=== PATIENT | female | born 1975 | race Caucasian/White ===

== ENCOUNTER 2023-06-24 08:33 | Outpatient (OUT) | payer OTHER, SELFPAY ==
--- NOTE | 2023-06-24 08:36 | MM_ITS ---
Patient: HEBER ELIAS Exam Date: 06/24/2023 : 1975 Gender:F Ordering : DR CIERA HUSSEIN Admission #: [id number] Family : Order #: [id number] CLICK HERE TO VIEW EXAM RADIOLOGY REPORT PROCEDURE: MM TOMOSYNTHESIS SCREENING BI COMPARISON: MG MAMM SCREEN REBECCA W CAD, 11/07/2019. MG MAMM SCREEN 3D REBECCA CAD, 12/01/2021. INDICATIONS: Screening Calculator Name NCI Breast Cancer Risk Assessment Tool 5 Year Breast Cancer Risk 0.90% Lifetime Breast Cancer Risk 9.60% Personal Breast Cancer No Personal Ovarian Cancer No Treatments None Family Cancers Grandmother-paternal with breast cancer at age ~60. LOCATION: [facility] BREAST COMPOSITION: Heterogeneously dense,which may obscure small masses. FINDINGS: DIAGNOSTIC CATEGORY 1--NEGATIVE. NO CHANGE FROM COMPARISON ASSESSMENT. Scattered benign-appearing calcifications are present. Scattered benign-appearing lymph nodes are present. RIGHT BREAST: No significant suspicious finding. LEFT BREAST: No significant suspicious finding. RECOMMENDATIONS: ROUTINE MAMMOGRAM AND CLINICAL EVALUATION IN 12 MONTHS. PLEASE NOTE: A NORMAL MAMMOGRAM DOES NOT EXCLUDE THE POSSIBILITY OF BREAST CANCER. A CLINICALLY SUSPICIOUS PALPABLE LUMP SHOULD BE BIOPSIED. Dictated by: Arjun Duggan MD on 06/24/2023 at 13:16 Approved by: Arjun Duggan MD on 06/24/2023 at 13:18
== END 2023-06-24 08:34 | disposition home or self-care (01) ==
LOC: MAMMO 08:33
PROVIDERS: PCP Family Medicine; Visit Provider Family Medicine
DX: Z12.31 Encounter for screening mammogram for malignant neoplasm of breast (principal); Z80.3 Family history of malignant neoplasm of breast
CPT/HCPCS: 77063; 77067

== ENCOUNTER 2024-07-12 16:14 | Outpatient (OUT) | payer OTHER, SELFPAY ==
--- NOTE | 2024-07-12 | MM_ITS ---
Patient Name: HEBER ELIAS MR#: [id number] : 1975 Exam Date: 07/12/2024 Ordering Doctor: DR CIERA HUSSEIN RADIOLOGY REPORT PROCEDURE: MM TOMOSYNTHESIS SCREENING BI COMPARISON: MM TOMOSYNTHESIS SCREENING BI, 06/24/2023. MG MAMM SCREEN 3D REBECCA CAD, 12/01/2021. MG MAMM SCREEN REBECCA W CAD, 11/07/2019. MAMMO REBECCA SCREEN, 07/17/2007. INDICATIONS: Screening mammogram Calculator Name NCI Breast Cancer Risk Assessment Tool 5 Year Breast Cancer Risk 0.90% Lifetime Breast Cancer Risk 9.50% Personal Breast Cancer No Personal Ovarian Cancer No Treatments None Family Cancers Grandmother-paternal with breast cancer at age ~60. LOCATION: [facility] BREAST COMPOSITION: The breasts are heterogeneously dense,which may obscure small masses. FINDINGS: DIAGNOSTIC CATEGORY 1--NEGATIVE. RIGHT BREAST: No significant suspicious finding. No significant change has occurred. LEFT BREAST: No significant suspicious finding. No significant change has occurred. RECOMMENDATIONS: ROUTINE MAMMOGRAM AND CLINICAL EVALUATION IN 12 MONTHS. PLEASE NOTE: A NORMAL MAMMOGRAM DOES NOT EXCLUDE THE POSSIBILITY OF BREAST CANCER. A CLINICALLY SUSPICIOUS PALPABLE LUMP SHOULD BE BIOPSIED. Dictated by: Phi Patel M.D. on 07/13/2024 at 11:35 Approved by: Phi Patel M.D. on 07/13/2024 at 11:38
--- OUTSIDE RECORDS SUMMARY | 2024-07-12 16:27 | XMS_ITS | CCD ---
Author Organization [facility] Care Team Providers Care Manager Division Name Role Phone HONORIO, DR RAJAN Primary Care Unavailable BUCKY MARIO Admitting Unavailable BUCKY MARIO Attending Unavailable YOU, DR AURELIO Prather Consulting Unavailable BETSY MONTAGUE Consulting Unavailable JOVITA, DR JACKSON Admitting Unavailable JOVITA, DR JACKSON Attending Unavailable HONORIO, DR RAJAN Primary Care Unavailable AMARILIS, DR JAJA Murry Consulting Unavailable JOVITA, DR JACKSON Consulting Unavailable HONORIO, DR RAJAN Primary Care Unavailable ANDIE HOU Consulting Unavailable ANDIE HOU Admitting Unavailable ANDIE HOU Attending Unavailable Jovita (Clinic), Renetta Primary Care UnavailAmanda Chin Attending Unavailable Amanda Arizmendi Admitting Unavailable SHAHAB Arizmendi Attending Provider [phone] Jovita (Clinic), DO Jackson Primary Care Provider Unallocated, Noms Provider Primary Care Provider REAL REYES Attending Unavailable ARIAN PEREYRA Attending Unavailable PEÑA SANFORD Attending Unavailable Unallocated Gilles JUAREZs Provider Primary Care Provi zechariah Allergies Allergy Classification Reported Allergen(s) Allergy Type Date of Onset Reaction(s) Facility (1 source) Codeine Drug Allergy 4 [facility] Repository (1 source) diphenhydrAMINE Drug Allergy 4 [facility] (1 source) oxyCODONE Drug Allergy 4 [facility] (1 source) telithromycin Drug Allergy 4 [facility] (6 sources) oxyCODONE Drug Allergy 4 Rash [facility] (4 sources) peanut allergenic extract Drug Allergy 4 Anaphylaxis [facility] (4 sources) Other Propensity to adverse reactions 5 [facility] Medications Current Medications Medication Drug Class(es) Dates Sig (Normalized) Sig (Original) [id number] 200 actuat albuterol 0.09 mg/actuat metered dose inhaler (4 sources) beta2-Adrenergic Agonist Start: 05-27-2024 End: 06-26-2024 take 2 puff(s) by inhalation every six hours for wheezing albuterol HFA (Ventolin HFA) 90 mcg/act inhaler Indications: Exercise-induced asthma (CMS/HCC) Inhale 2 puffs every 6 (six) hours if needed for wheezing or shortness of breath 8 g 05/27/2024 06/26/2024 Active azithromycin 250 mg oral tablet (8 sources) Macrolide Antimicrobial Start: 06-01-2024 azithromycin (Zithromax) 250 MG tablet Indications: Acute bronchitis, unspecified organism Take 2 tabs (500 mg) by mouth today, than 1 tab (250 mg) daily for 4 days. 6 tablet 06/01/2024 Active Start: 10-04-2023 End: 06-01-2024 azithromycin (Zithromax Z-Pa k) 250 MG tablet Indications: COVID-19 Take as directed 6 tablet 10/04/2023 06/01/2024 Discontinued benzonatate 100 mg oral capsule (2 sources) Non-narcotic Antitussive Start: 06-01-2024 End: 06-08-2024 take 1 capsule by mouth three times daily as needed for cough benzonatate (Tessalon Perles) 100 MG capsule Indications: Acute bronchitis, unspecified organism Take 1 capsule (100 mg) by mouth 3 (three) times a day as needed for cough for up to 7 days Do not crush or chew. 21 capsule 06/01/2024 06/08/2024 Active cetirizine hydrochloride 10 mg oral tablet (4 sources) Histamine-1 Receptor Antagonist Start: 03-15-2024 cetirizine (ZyrTEC) 10 MG tablet Take 10 mg by mouth 03/15/2024 Active [id number] 0.3 ml EPINEPHrine 1 mg/ml auto-injector (4 sources) alpha-Adrenergic Agonist, beta-Adrenergic Agonist, Catecholamine Start: 05-17-2024 EPINEPHrine (Epipen) 0.3 MG/0.3ML injection syringe Inject into the shoulder, thigh, or buttocks 05/17/2024 Active fluticasone propionate 0.05 mg/actuat metered dose nasal spray (4 sources) Corticosteroid Start: 03-15-2024 fluticasone (Flonase) 50 MCG/ACT nasal spray Administer into affected nostril(s) 03/15/2024 Active predniSONE 20 mg oral tablet (2 sources) Start: 06-01-2024 End: 06-06-2024 take 1 tablet by mouth once daily predniSONE (Deltasone) 20 MG tablet Indications: Acute bronchitis, unspecified organism Take 1 tablet (20 mg) by mouth Daily for 5 days 5 tablet 06/01/2024 06/06/2024 Active topiramate 25 mg oral tablet (2 sources) Start: 03-15-2024 topiramate (Topamax) 25 MG tablet Take 25 mg by mouth 03/15/2024 Active Completed/Discontinued Medications Medication Drug Class(es) Dates Sig (Normalized) Sig (Original) 12 hr dextromethorphan hydrobromide 30 mg / guaiFENesin 600 mg extended release oral tablet (4 sources) Uncompetitive E-yxamdt-F-asparta te Receptor Antagonist, Sigma-1 Agonist Start: End: take 1 tablet by mouth once as needed Dextromethorphan-guai FENesin (Mucinex DM) 30-600 MG tablet sustained-release 12 hour Indications: Upper respiratory tract infection, unspecified type Take 1 tablet by mouth every 12 (twelve) hours if needed (as needed) for up to 5 days 28 tablet 05/27/2024 06/01/2024 methylPREDNISolone (6 sources) Corticosteroid Start: 4 End: 4 methylPREDNISolone (Medrol Dospak) 4 MG tablets Indications: COVID-19 As directed 21 tablet 10/04/2023 06/01/2024 Discontinued Start: 10-04-2023 methylPREDNISo lone (Medrol Dospak) 4 MG tablets Indications: COVID-19 As directed 21 tablet 10/04/2023 Active Start: 10-04-2023 methylPREDNISo lone (Medrol Dospak) 4 MG tablets Indications: COVID-19 As directed 21 tablet 0 10/04/2023 Active Problems Active Problems Problem Classification Problem Date Documented Da te Episodic/Chronic Acute bronchitis (2 sources) Acute bronchitis; Translations: [Acute bronchitis, unspecified] 06-01-2024 Episodic Asthma (2 sources) Exercise-induced asthma; Translations: [Exercise induced bronchospasm] 05-27-2024 Chronic Immunizations and screening for infectious disease (2 sources) Contact with or exposure to other viral diseases; Translations: [Exposure to COVID-19 virus] 10-04-2023 Episodic Influenza (1 source) Influenza due to other identified influenza virus with other respiratory manifestations; Translations: [FLU D/T OTH ID FLU VIR OTH RSP MANF] Onset: 08-11-2022 Episodic Other lower respiratory disease (2 sources) Cough; Translations: [Cough, unspecified type] 05-27-2024 Episodic Other upper respiratory infections (2 sources) Upper respiratory infection; Translations: [Acute upper respiratory infection, unspecified] 05-27-2024 Episodic Unclassified (2 sources) COUGH, UNSPECIFIED; Translations: [COUGH, UNSPECIFIED] Onset: 08-11-2022 Unclassified (1 source) CONTACT W/AND (SUSP) EXPOS COVID-19; Translations: [CONTACT W/AND (SUSP) EXPOS COVID-19] Onset: 08-11-2022 Unclassified (1 source) Pain in right ankle and joints of right foot; Translations: [Pain in right ankle and joints of right foot] Onset: 08-26-2023 Viral infection (2 sources) Disease caused by 2019-nCoV; Translations: [COVID-19] 10-04-2023 Episodic Past or Other Problems Problem Classification Problem Date Documented Da te Episodic/Chronic E Codes: Fall (1 source) Fall (on) (from) unspecified stairs and steps, initial encounter; Translations: [FALL ON FROM UNS STAIRS STEPS INIT] Onset: 03-24-2022 Episodic Other screening for suspected conditions (not mental disorders or infectious disease) (4 sources) Encounter for screening mammogram for malignant neoplasm of breast; Translations: [ENC SCR MAMMO MALIG NEOPLASM BREAST] Onset: 12-01-2021 Episodic Residual codes; unclassified (1 source) Family history of malignant neoplasm of breast; Translations: [FAMILY HX MALIG NEOPLASM OF BREAST] Onset: 12-04-2021 Episodic Spondylosis; intervertebral disc disorders; other back problems (4 sources) Dorsalgia, unspecified; Translations: [DORSALGIA UNSPECIFIED] Onset: 03-22-2022 Episodic Sprains and strains (2 sources) Strain of unspecified muscle, fascia and tendon at shoulder and upper arm level, left arm, initial encounter; Translations: [Strain of unspecified muscle, fascia and tendon at shoulder and upper arm level, right arm, initial encounter] Onset: 03-24-2022 Episodic Unclassified (1 source) COUGH, UNSPECIFIED; Translations: [COUGH, UNSPECIFIED] Onset: 08-09-2022 Results Test Name Value Interpretation Reference Range Facility Laboratory - Microbiology an d Antimicrobial susceptibilityon 05-27-2024 SARS-CoV-2 (COVID-19) RNA CHOLO+probe Ql (Unsp spec) Negative [facility] No Panel Informationon 05-27 FLU A Negative [facility] FLU B Negative [facility] Interpretation and review of laboratory results Normal [facility] Laboratory - Microbiology an d Antimicrobial susceptibilityOrdered By: Peña Crocker on 10-04-2023 SARS-CoV-2 (COVID-19) RNA CHOLO+probe Ql (Unsp spec) Positive [facility] No Panel InformationOrdered By: Peña Crocker on 10-04-2023 Interpretation and review of laboratory results Abnormal [facility] MR ankle RT wo conon 024 MR ankle RT wo con [facility] [address] MRI Report Signed Patient: Heber Elias MR#: [id number] 300 : 1975 Acct:[id number] Age/Sex: 47 / F ADM Date: 08/26/23 Loc: MR Room: Type[facility] Attending Dr: Amanda Arizmendi DPM Copies to: Amanda Arizmendi DPM Ordering Provider: Amanda Arizmendi DPM Date of Service: 08/26/23 MR/MR ankle RT wo con: R ANKLE FOOT PAIN MR ankle RT wo con 08/26/2023 10:33 AM SIGNS AND SYMPTOMS: Anterior ankle pain radiating to metatarsals and foot PROTOCOL: Multiplanar multisequence MR images of the right ankle were obtained without IV contrast. COMPARISON: Radiographs of the right ankle from the same date FINDINGS: Alignment: Normal. Fluid: Tibiotalar: No joint effusion. Subtalar: No joint effusion. Medial: Medial malleolus: Normal. Tendons: Posterior tibial tendon: Intact. Flexor digitorum longus: Intact. Flexor hallucis longus: Intact. Ligaments: Deltoid ligament complex - superficial: Intact. Deltoid ligament complex - deep: Intact. Spring (plantar calcaneo-navicular) ligament: Intact. Lateral: Lateral malleolus: Normal. Retromalleolar groove: Normal. Tendons: Peroneus longus: There is a split thickness tear along the lateral aspect and plantar aspect of the foot beginning on series 6 image 10 and extending inferiorly and anteriorly.. Peroneus brevis: Intact. Peroneal retinaculum: Intact. Peroneus quartus present. Ligaments: Anterior inferior tibiofibular (syndesmosis): Intact. Posterior inferior tibiofibular (syndesmosis): Intact. Anterior talofibular ligament: Intact. Calcaneofibular ligament: Intact. Posterior talofibular ligament: Intact. Posterior: Posterior talus: Normal. Intermalleolar ligament: Intact. Achilles tendon: Intact. Plantar fascia: Intact. Anterior: Tendons: Anterior tibial tendon: Intact. Extensor hallucis longus: Intact. Extensor digitorum longus: Intact. Tibiotalar joint: Preserved. Subtalar joint: Preserved. Bones (other than subarticular marrow): Normal. Muscles: Normal Tarsal tunnel: Normal. Sinus tarsi: Normal. MR/MR ankle RT wo con IMPRESSION: There is a split thickness tear of the peroneal longus tendon as described above. There is a peroneus quartus present. The ankle is otherwise within normal limits. Impression dictated by: Macho Kan M.D.08/26/2023 5:06 PM Dictation Location: [place] [address] Transcribed By: [facility] 08/26/23 1706 Dictated By: Macho Kan II, MD 08/26/23 2784 Signed By: 08/26/23 1706 [facility] MR foot RT wo conon 08-26-19 [place] [address] MRI Report Signed Patient: Heber Elias MR#: [id number] 300 : 1975 Acct:[id number] Age/Sex: 47 / F ADM Date: 08/26/23 Loc: Room: Type[facility] Attending Dr: Amanda Arizmendi DPM Copies to: Amanda Arizmendi DPM Ordering Provider: Amanda Arizmendi DPM Date of Service: 08/26/23 MR/MR foot RT wo con: RIGHT ANKLE/FOOT PAIN MR foot RT wo con 08/26/2023 10:33 AM SIGNS AND SYMPTOMS: Anterior ankle pain radiating to metatarsals and foot PROTOCOL: Multiplanar multisequence MR images of the right foot were obtained without IV contrast. COMPARISON: Radiographs from the same date FINDINGS: Lisfranc ligament: Intact. Hallux: Osseous: Normal. Extensor tendon: Normal. Flexor tendon: Normal. First metatarsophalangeal joint: There is minimal subcortical edema at the base of the proximal phalanx of the great toe. There is mild narrowing of the joint space.. Hallux-sesamoid complex: Normal. Second ray: Osseous: Normal. Extensor tendon: Normal. Flexor tendon: Normal. Second metatarsophalangeal joint: Normal. Plantar plate: Normal. Third ray: Osseous: Normal. Extensor tendon: Normal. Flexor tendon: Normal. Third metatarsophalangeal joint: Normal. Plantar plate: Normal. Fourth ray: Osseous: Normal. Extensor tendon: Normal. Flexor tendon: Normal. Fourth metatarsophalangeal joint: Normal. Plantar plate: Normal. Fifth ray: Osseous: Normal. Extensor tendon: Normal. Flexor tendon: Normal. Fifth metatarsophalangeal joint: Normal. Plantar plate: Normal. Interspaces: Interdigital (Ba) neuroma: None. Intermetatarsal bursitis: None. Soft tissues: There is partial visualization of a split thickness tear of the peroneal longus along the plantar surface of the foot.. Muscles: Normal. Bones: Normal. Nerves: Normal. Blood vessels: Normal. MR/MR foot RT wo con IMPRESSION: There is minimal subcortical edema at the base of the proximal phalanx of the great toe. There is mild narrowing of the joint space. There is partial visualization of a split thickness tear of the peroneal longus along the plantar surface of the foot. The foot is otherwise within normal limits. Impression dictated by: Macho Kan M.D.08/26/2023 5:10 PM Dictation Location: [facility]-07 Transcribed By: CHACHA 08/26/23 1710 Dictated By: Macho Kan II, MD 08/26/23 1706 Signed By: 08/26/23 171 Normal [facility] XR pre/post mri xrayon 08-26 XR pre/post mri xray [facility] Main [place] [address] [place] [address] XRay Report Signed Patient: Heber Elias MR#: [id number] 300 : 1975 Acct:[id number] Age/Sex: 47 / F ADM Date: 08/26/23 Loc: Room: Type[facility] Attending Dr: Amanda Arizmendi DPM Copies to: Amanda Arizmendi DPM Ordering Provider: Amanda Arizmendi DPM Date of Service: 08/26/23 XR/XR pre/post mri xray: RIGHT ANKLE AND FOOT PAIN XR pre/post mri xray 08/26/2023 10:33 AM SIGNS AND SYMPTOMS: RIGHT ANKLE AND FOOT PAIN RIGHT ANKLE AND FOOT PROTOCOL: Frontal and lateral radiographs of the right ankle and right foot COMPARISON: None FINDINGS: Right ankle: The bones are in anatomic alignment. The ankle mortise is preserved. There is no fracture or dislocation. No significant soft tissue swelling. Right foot: The bones are in anatomic alignment. There is no evidence of fracture or dislocation. No significant soft tissue swelling. There is minimal narrowing of the first metatarsophalangeal joint. XR/XR pre/post mri xray IMPRESSION: Right ankle: No acute bony injury or significant soft tissue swelling. Right foot: Mild degenerative changes are noted at the first metatarsophalangeal joint space. No acute bony injury or significant soft tissue swelling. Impression dictated by: Macho Kan M.D.08/26/2023 5:11 PM Dictation Location: [facility]-07 Transcribed By: PWS 08/26/23 1711 Dictated By: Macho Kan II, MD 08/26/23 171 Signed By: 08/26/23 171 [facility] Cov[facility]on 07-22 SARS-CoV-2 (COVID-19) RNA CHOLO+probe Ql (Unsp spec) Not detected Normal NOT DETECTED [facility] Comment on above: Result Comment: This test is not yet approved or cleared by the [place] FDA. When there are no FDA-approved or cleared tests available, and other criteria are met, FDA can make tests available under an emergency access mechanism called an Emergency Use Authorization (EUA). The EUA for this test is supported by the [place] of Health and Human Service's (HHS's) declaration that circumstances exist to justify the emergency use of in vitro diagnostics for the detection and/or diagnosis of the virus that causes COVID-19. This EUA will remain in effect (meaning this test can be used) for the duration of the COVID-19 declaration justifying emergency of IVDs, unless it is terminated or revoked by FDA (after which the test may no longer be used). When diagnostic testing is negative, the possibility of a false negative should be considered in the context of a patient's recent exposures and the presence of clinical signs and symptoms consistent with SARS-CoV-2. Performed By: #### C VDTBH #### [facility] [address] [place] [address] Dr. Juan Eubanks INFLUENZA A AND B AGon 08[facility]09 [facility] BELOW Normal [facility] Comment on above: Result Comment: Nega tive for Flu B protein antigen. Infection due to Flu B cannot be ruled out. Flu B antigen in the sample may be below the detection limit of the test. Performed By: #### I NFLUAB #### [facility] [address] [place] [address] Dr. Juan Eubanks INFLUENZA A AG Positive Abnormal NEGATIVE SEE COMMENT [facility] Comment on above: Performed By: #### I NFLUAB #### [facility] [address] [place] [address] Dr. Juan Eubanks INFLUENZA B AG Negative Normal NEGATIVE SEE COMMENT [facility] Comment on above: Performed By: #### I NFLUAB #### [facility] [address] [place], [place] [address] Dr. Juan Eubanks INTERNAL CONTROLS Within Normal Limits Normal Wi thin Normal Limits [facility] Comment on above: Performed By: #### I NFLUAB #### [facility] [address] [place], [place] [address] CSPINE WO CONon 2 CT CSPINE WO CON EXAMINATION: CT CSPI NE WO CON HISTORY: Unspecified fall ; acute neck, back, bilateral shoulder pain after falling down steps COMPARISON: XR cervical spine 01/20/2019 TECHNIQUE: Axial, Coronal, and Sagittal images were created without IV contrast. Dose reduction techniques were achieved by using automated exposure control and/or adjustment of mA and/or kV according to patient size and/or use of iterative reconstruction technique. FINDINGS: VERTEBRAL BODIES: No fracture, pars defect, or osseous lesion. FACET JOINTS: No disruption or abnormal widening. CERVICAL DISCS: Mild disc space narrowing and mild posterior disc bulging C3-C4, C4-C5. CENTRAL CANAL: No spinal stenosis or evidence of hemorrhage. PARASPINAL AREA: No visible mass. IMPRESSION: 1. No appreciable acute abnormality. 2. Mild degenerative changes. Electronically authenticated by: AURELIO ORTA Date: 2022-03-22 16:57 Normal [facility] CT TSPINE WO CONon 2 CT TSPINE WO CON EXAMINATION: CT TSPI NE WO CON HISTORY: Unspecified fall ; acute neck, back, bilateral shoulder pain after falling down steps COMPARISON: No relevant comparison available. TECHNIQUE: Axial, Coronal, and Sagittal CT images obtained without and with IV contrast. Dose reduction techniques were achieved by using automated exposure control and/or adjustment of mA and/or kV according to patient size and/or use of iterative reconstruction technique. FINDINGS: PARASPINAL AREA: Normal with no visible mass. DISCS: Early degenerative disc disease is present without focal protrusion or neural impingement. BONES: No fracture, pars defect, or osseous lesion. OTHER: Negative. IMPRESSION: 1. No acute bone abnormality. 2. Mild, early degenerative changes. Electronically authenticated by: AURELIO ORTA Date: 2022-03-22 17:03 Normal [facility] MG MAMM SCREEN 3D REBECCA CADon 12-01-2021 MG MAMM SCREEN 3D REBECCA CAD Patient: HEBER ELIAS Exam Date: 12/01/2021 : 1975 Gender:F Ordering : DR RENETTA HUSSEIN Admission #: [id number] Family : Order #: [id number] CLICK HERE TO VIEW EXAM RADIOLOGY REPORT PROCEDURE: MAMMOGRAM SCREENING 3D BILATERAL CAD COMPARISON: MG MAMM SCREEN REBECCA W CAD, 10/02/2018. MG MAMM SCREEN REBECCA W CAD, 11/07/2019. INDICATIONS: Screening mammography Calculator Name NCI Breast Cancer Risk Assessment Tool 5 Year Breast Cancer Risk 0.80% Lifetime Breast Cancer Risk 9.80% Personal Breast Cancer No Personal Ovarian Cancer No Treatments None Family Cancers Grandmother-paternal with breast cancer at age 60. LOCATION: [facility] BREAST COMPOSITION: Heterogeneously dense,which may obscure small masses. FINDINGS: DIAGNOSTIC CATEGORY 1--NEGATIVE. NO CHANGE FROM COMPARISON ASSESSMENT. Scattered benign-appearing calcifications are present. Scattered benign-appearing lymph nodes are present. RIGHT BREAST: No significant suspicious finding. LEFT BREAST: No significant suspicious finding. RECOMMENDATIONS: ROUTINE MAMMOGRAM AND CLINICAL EVALUATION IN 12 MONTHS. PLEASE NOTE: A NORMAL MAMMOGRAM DOES NOT EXCLUDE THE POSSIBILITY OF BREAST CANCER. A CLINICALLY SUSPICIOUS PALPABLE LUMP SHOULD BE BIOPSIED. Dictated by: Jaja Duggan MD on 12/01/2021 at 10:18 Approved by: Jaja Duggan MD on 12/01/2021 at 10:24 Normal [facility] Vital Signs Date Time Vital Sign Value Performing Clinician Charmaine river 06-01-2024 09:31-0400 Body temperature 96.91 [degF] Peña Sanford DIRECTOR OF [employer]ING [employer] Work Phone: [facility] 06-01-2024 09:31-0400 Body weight 67.13 kg Peña Sanford DIRECTOR OF [employer] Work Phone: [facility] 06-01-2024 09:31-0400 Diastolic blood pressure 70 mm[Hg] Peña Sanford DIRECTOR OF [employer] Work Phone: [facility] 06-01-2024 09:31-0400 Heart rate 89 /min Peña Sanford DIRECTOR OF [employer] Work Phone: [facility] 06-01-2024 09:31-0400 SaO2% (BldA) [Mass fraction] 99 % Peña Sanford DIRECTOR OF [employer] Work Phone: [facility] 06-01-2024 09:31-0400 Systolic blood pressure 116 mm[Hg] Peña Sanford DIRECTOR OF [employer] Work Phone: [facility] 05-27-2024 09:41-0400 Body temperature 98.01 [degF] Summer Workman PA Work Phone: [facility] 05-27-2024 09:41-0400 Body weight 67.13 kg Summer Workman PA Work Phone: [facility] 05-27-2024 09:41-0400 Diastolic blood pressure 62 mm[Hg] Summer Workman PA Work Phone: [facility] 05-27-2024 09:41-0400 Heart rate 100 /min Summer Workman PA Work Phone: [facility] 05-27-2024 09:41-0400 SaO2% (BldA) [Mass fraction] 98 % Summer Workman PA Work Phone: [facility] 05-27-2024 09:41-0400 Systolic blood pressure 100 mm[Hg] Summer Workman PA Work Phone: [facility] 10-04-2023 15:40-0500 Body temperature 98.71 [degF] Real Reyes DO Work Phone: [facility] 10-04-2023 15:40-0500 Body weight 67.27 kg Real Odiliashady DO Work Phone: [facility] 10-04-2023 15:40-0500 Diastolic blood pressure 62 mm[Hg] Real Odiliashady DO Work Phone: [facility] 10-04-2023 15:40-0500 Heart rate 88 /min Real Odiliashady DO Work Phone: [facility] 10-04-2023 15:40-0500 SaO2% (BldA) [Mass fraction] 99 % Real Odiliashady DO Work Phone: [facility] 10-04-2023 15:40-0500 Systolic blood pressure 116 mm[Hg] Real Hartleyshady DO Work Phone: [facility] Encounters Encounter Date Encounter Type Care Provider Facility Start: 06-01-2024 End: 06-01-2024 ambulatory PEÑA SANFORD Not Available Start: 06-01-2024 End: 06-01-2024 Office outpatient visit 25 minutes Peña Sanford DIRECTOR OF [employer] Work Phone: [facility] Comment on above: Acute bronchitis, un specified organism (Primary Dx) Start: 05-27-2024 End: 05-27-2024 ambulatory SUMMER M WORKMAN Not Available Start: 05-27-2024 End: 05-27-2024 Office outpatient visit 25 minutes Summer M Workman PA Work Phone: [facility] Comment on above: Upper respiratory tr act infection, unspecified type (Primary Dx); Cough, unspecified type; Exercise-induced asthma ([facility]) Start: 10-04-2023 End: 10-04-2023 ambulatory REAL REYES Not Available Start: 10-04-2023 End: 10-04-2023 Office outpatient new 45 minutes Real Hartleyshady DO Work Phone: [facility] Comment on above: COVID-19 (Primary Dx ); Exposure to COVID-19 virus Start: 08-26-2023 End: 08-26-2023 ambulatory Renetta Hussein (Clinic) Facility:[facility] Start: 08-26-2023 End: 08-26-2023 ambulatory DO Renetta Hussein (Clinic) Work Phone: [facility] Work Phone: Start: 08-26-2023 End: 08-26-2023 Patient encounter procedure DO Renetta Hussein (Clinic) Work Phone: [facility] [place] Work Phone: Start: 08-09-2022 End: 08-09-[address] MOHINI OLMEDO Facility:[facility] Start: 03-22-2022 End: 03-22-[address] MOHINI LOMEDO Facility:[facility] Start: 12-01-2021 End: 12-02-[address] RENETTA HUSSEIN Facility:[facility] Procedures Date Procedure Procedure Detail Performing Clinician Start: 05-27-2024 STATUS COVID-19/FLU Ant russell Reyes DO Work Phone: Start: 10-04-2023 Sars-cov-2 detection by dna/rna Real Reyes DO Work Phone: Start: 08-26-2023 MRI of right ankle DO Vincenzo john Hussein ([facility]) Work Phone: Start: 08-26-2023 MRI of right foot DO Tyrese Hussein ([facility]) Work Phone: Start: 08-26-2023 XR pre/post mri xray DO Renetta Hussein ([facility]) Work Phone: Plan of Treatment Date Care Activity Detail Author Start: 04-22-2024 Influenza vaccination Influenza Vacc ine (#1) [facility] Start: 2016 Screening for malign ant neoplasm of breast Mammogram [facility] Start: 2006 Screening for malign ant neoplasm of cervix [facility] Start: 1997 Screening for malign ant neoplasm of cervix Pap Smear [facility] Start: 1976 Screening for malign ant neoplasm of colon [facility] Immunizations Immunization Date Immunization Notes Care Provider Liya young 05-20-2023 influenza virus vacc ine, unspecified formulation Arian MEYER Work Phone: [facility] Payers Date Payer Category Payer Self-pay 2022 Private Health Insurance [employer] [facility] [id number] 2022 Unknown [id number] 2019 Unknown [id number] 1976 Unknown [id number] 1976 Unknown [id number] 1976 Unknown [id number] 1976 Unknown [id number] 1976 Unknown [id number] 1976 Unknown [id number] 1959 Unknown [id number] Unknown [id number] Social History Date Type Detail Facility Tobacco smoking stat [facility] Unknown if ever smoked [facility] Work Phone: Start: 1975 Sex Assigned At Female F [facility] Start: 10-04-2023 Tobacco smoking stat [facility] Never smoked tobacco [facility] Start: 10-04-2023 Tobacco use and exposure Smokeless tobacco non-user [facility] Start: 10-04-2023 End: 06-01-2024 Alcohol intake Ex-drinker (finding) [facility] Start: 1975 Sex Assigned At Not on file [facility] Start: 10-04-2023 End: 06-01-2024 Gender identity Not on file [facility] Start: 10-04-2023 End: 06-01-2024 History of Social function [facility] History of Present illness Narrative 06-01-2024 Peña Sanford NP - 06/01/2024 9:25 AM EDT Note Date & Type Note Facility 06-01-2024 History of Presen t illness Narrative HPI: Historian of HPI: patient Heber Elias is a 48 y.o. female who presents today to the Urgent Care with the following complaints and denials which have been present for 1 week(s) C/O Denies Symptom Comments [] [x] Runny Nose [] [x] Difficulty Swallowing [x] [] Sore Throat [x] [] Cough [] [x] Ear Pain [] [x] Fever [] [x] Chills [x] [] Chest Congestion [] [x] Myalgia [] [x] Sinus Pain [x] [] Sinus Pressure Additional Comments: pt has taken Musinex OTC medication without relief ROS: A complete system ROS was performed and negative aside from the pertinent positives noted in the HPI and Examination General Examination: General Examination: alert, oriented, normal affect, well appearing, in no acute distress, well developed, well nourished Head: normocephalic, atraumatic Eyes: sclera non-icteric Ears: tympanic membrane intact, clear, auditory canal non inflamed Nose: congested with clear drainage. Oral Cavity: mucosa moist, no lesions Throat: PND noted Neck/Thyroid: trachea midline Lymph Nodes: no cervical adenopathy Heart: no murmurs, regular rate and rhythm, S1, S2 normal Lungs: clear to auscultation bilaterally. Wet bronchospastic cough Extremities: no edema, no cyanosis Neurologic: alert and oriented Psych: alert, oriented, cognitive function intact, cooperative with exam 1. Acute bronchitis, unspecified organism Diagnosis and treatment discussed with patient. Immediate eval if new, worsening sx otherwise f/u with PCP if sx not resolved with course of atb, sooner if not improving over next 3-4 days. To ED for trouble swallowing secretions, shortness of breath, chest pain, or other red flag symptoms. Advised Pt on supportive therapies, including using a vaporizer/humidifer/steam from hot showers, lots of fluids as tolerated, rest, avoidance of second-hand smoke, frequent hand-washing w/ soap and water, and OTC ibuprofen or acetaminophen as directed prn for pain control - azithromycin (Zithromax) 250 MG tablet; Take 2 tabs (500 mg) by mouth today, than 1 tab (250 mg) daily for 4 days. Dispense: 6 tablet; Refill: 0 - predniSONE (Deltasone) 20 MG tablet; Take 1 tablet (20 mg) by mouth Daily for 5 days Dispense: 5 tablet; Refill: 0 - benzonatate (Tessalon Perles) 100 MG capsule; Take 1 capsule (100 mg) by mouth 3 (three) times a day as needed for cough for up to 7 days Do not crush or chew. Dispense: 21 capsule; Refill: 0 documented in this encounter [facility] History of Present illness Narrative 05-27-2024 Arian JohnBETSY haro - 05/27/2024 9:20 AM EDT Note Date & Type Note Facility 05-27-2024 History of Presen t illness Narrative HPI: Historian of HPI: patient Heber Elias is a 48 y.o. female who presents today to the Urgent Care with the following complaints and denials which have been present for 3 day(s). Pt reports 3 days of nasal congestion, cough just started today with some green mucus production, left ear pain, mild sore throat, subjective fever and myalgias. Denies sob, wheezing, chest pain, nausea, vomiting, hemoptysis. She is not a smoker, has hx of exercise induced asthma but has not needed an inhaler in her lifetime. C/O Denies Symptom Comments [x] [] Runny Nose [] [x] Difficulty Swallowing [x] [] Sore Throat A little as the day went on [x] [] Cough [x] [] Ear Pain Mild, left side [x] [] Fever [] [x] Chills [x] [] Nasal Congestion mild [x] [] Myalgia [] [x] Sinus Pain [] [x] Sinus Pressure Additional Comments: Pt agreeable to COVID/flu testing at this time. Allergies Allergen Reactions Peanut (Diagnostic) Anaphylaxis Other Oxycodone Rash Current Outpatient Medications Medication Instructions azithromycin (Zithromax Z-David) 250 MG tablet Take as directed cetirizine (ZYRTEC) 10 mg, Oral EPINEPHrine (Epipen) 0.3 MG/0.3ML injection syringe Intramuscular fluticasone (Flonase) 50 MCG/ACT nasal spray Nasal methylPREDNISolone (Medrol Dospak) 4 MG tablets As directed Visit Vitals BP 100/62 Pulse 100 Temp 98 F Wt 148 lb SpO2 98% Smoking Status Never ROS: A complete system ROS was performed and negative aside from the pertinent positives noted in the HPI and PE. IH Testing: COVID/Flu Physical Exam General Examination: alert, oriented, normal affect, well-appearing, in no acute distress, well developed, well nourished. Head: normocephalic, atraumatic Eyes: sclera non-icteric Ears: auditory canal clear, tympanic membrane intact, clear Nose: Slight congestion noted Oral Cavity: no lesions, mucosa moist Throat: clear, symmetrical rise of soft palate and uvula, no erythema or exudate Lymph Nodes: no cervical adenopathy Heart: regular rate and rhythm, S1, S2 normal Lungs: clear to auscultation bilaterally. No wheezes, rales, rhonchi. Extremities: no edema, no cyanosis Psych: alert, oriented, cognitive function intact, cooperative with exam. Assessment/Plan 1. Upper respiratory tract infection, unspecified type Discussed diagnosis and management, likely viral etiology and symptomatic treatment including OTC Tylenol, mucinex dm, using humidifier, rest, and increased hydration. Patient advised to return for immediate evaluation if symptoms worse, change, or do not improve. Follow-up with PCP in 5-7 days or sooner if needed. All questions/concerns addressed. Patient voiced understanding and agreement with the plan. ds contagious nature, off work note for tomorrow provided per front end driver. - Dextromethorphan-guaiFENesin (Mucinex DM) 30-600 MG tablet sustained-release 12 hour; Take 1 tablet by mouth every 12 (twelve) hours if needed (as needed) for up to 5 days Dispense: 28 tablet; Refill: 0 2. Cough, unspecified type Covid/flu neg, reviewed with pt. - STATUS COVID-19/FLU 3. Exercise-induced asthma (CMS/HCC) Will send albuterol as she has hx of asthma without inhaler at home. Instructed on proper use. - albuterol HFA (Ventolin HFA) 90 mcg/act inhaler; Inhale 2 puffs every 6 (six) hours if needed for wheezing or shortness of breath Dispense: 8 g; Refill: 0 documented in this encounter [facility] History of Present illness Narrative 10-04-2023 Alfredo Marrero MA - 10/04/2023 3:30 PM EST Note Date & Type Note Facility 10-04-2023 History of Presen t illness Narrative HPI: Historian of HPI: patient Heber More is a 47 y.o. female who presents today to the Urgent Care with the following complaints and denials which have been present for 3 day(s) pt states she tested positive for covid today at home. Pt states she was also exposed to covid by a co-worker. C/O Denies Symptom Comments [x] [] Runny Nose Yellow and green discharge [] [x] Difficulty Swallowing [] [x] Sore Throat [x] [] Cough Wet cough [] [x] Ear Pain [] [x] Fever [] [x] Chills [] [x] Nasal Congestion [] [x] Myalgia [x] [] Sinus Pain CIFUENTES [x] [] Sinus Pressure Additional Comments: pt has not taken any OTC medications ROS: A complete system ROS was performed and negative aside from the pertinent positives noted in the HPI and PE. IH Testing: The following tests were performed PCR COVID Test SEE TEST(S) ORDERS FOR RESULTS EXAMINATION General Examination: GENERAL EXAMINATION: alert, oriented, normal affect, well-appearing, in no acute distress, well developed, well nourished. HEAD: normocephalic EYES: sclera non-icteric. EARS: tympanosclerosis bilaterally NOSE: congested with clear drainage ORAL CAVITY: mucosa moist no lesions. THROAT: PND noted. NECK/THYROID: no carotid bruit. LYMPH NODES: no cervical adenopathy. HEART: no murmurs, regular rate and rhythm, S1, S2 normal. LUNGS: clear to auscultation bilaterally. EXTREMITIES: no edema, no cyanosis. NEUROLOGIC: alert and oriented. PSYCH: alert, oriented, cognitive function intact, cooperative with exam. HPI and documentation approved and amended as necessary by Dr. Real Reyes. Transcribed by Peña reinoso LPN-IV 1. Exposure to COVID-19 virus COVID positive. Results reviewed with patient. - RAPID DNA COVID 2. COVID-19 Dx and tx reviewed with patient. Medication as directed. Push fluids. No NSAIDs while taking steroid. Quarantine for 5 days, mask for 5 days. To ER if adverse change in condition noted. Follow up with PCP. azithromycin (Zithromax Z-David) 250 MG tablet Take as directed, Normal methylPREDNISolone (Medrol Dospak) 4 MG tablets As directed, Normal documented in this encounter [facility] Instructions 10-04-2023 Patient Instructions Note Date & Type Note Facility 10-04-2023 Instructions Peña Ferrara RN - 10/04/2023 3:30 PM EST See progress note documented in this encounter [facility] Clinical Note 03-22-2022 Note Date & Type Note Facility 03-22-2022 Note PROCEDURE: XR SHOULD ER REBECCA 2V or > HISTORY: Unspecified fall ; bilateral shoulder pain after falling down steps COMPARISON: None. FINDINGS: BONES:No fracture, acute abnormality, or significant arthropathy. SOFT TISSUES:No visible soft tissue swelling. EFFUSION:None visible. OTHER: Negative. IMPRESSION: 1. No acute bone abnormality or significant degenerative changes. Electronically authenticated by: AURELIO ORTA Date: 2022-03-22 17:10 [facility] Evaluation note Note Date & Type Note Facility Evaluation note [email or web address]: Evaluation note Note Date & Type Note Facility Evaluation note Diagnosis COVID-19- Primary Exposure to COVID-19 virus documented in this encounter [facility] Evaluation note Note Date & Type Note Facility Evaluation note Diagnosis Upper respiratory tract infection, unspecified type- Primary Cough, unspecified type Exercise-induced asthma (CMS/HCC) Exercise induced bronchospasm documented in this encounter [facility] Evaluation note Note Date & Type Note Facility Evaluation note Diagnosis Acute bronchitis, unspecified organism- Primary documented in this encounter [facility] Summary Purpose Family History No Family History Records FoundNo Family History Records FoundNo Family History Records Found Advance Directives Advance Directive Response Recorded Date/ Time Advance Directives No July 22, 2023 2:43pm Chief Complaint and Reason for Visit Chief Complaint right ankle/foot raisa n Additional Source Comments INFORMATION SOURCE (unrecogn ized section and content) DATE CREATED AUTHOR 09/01/2022 [facility] DATE CREATED AUTHOR AUTHOR'S ORGANIZ ATION 08/31/2023 [facility] DATE CREATED AUTHOR AUTHOR'S ORGANIZ ATION 06/03/2024 [facility] EPIC Care Teams (unrecognized sec tion and content) Team Status: Active Member Role Status Dates Renetta Hussein (Clinic) , [facility] Primary Care Prov ider Active Team Status: Inactive Member Role Status Dates Amanda Arizmendi DPM Attending Provider Active Renetta Hussein (Clinic) , [facility] Primary Care Prov ider Active Manager Division Relationship Specialty Start Date End Date Unallocated, Yane Provider [address] [facility] [address] PCP - General Family Medicine 10/04/23 Manager Division Relationship Specialty Start Date End Date Unallocated, Yane Devine MD [address] [address] PCP - General Family Medicine 10/04/23 Manager Division Relationship Specialty Start Date End Date Unallocated, Yane Devine MD [address] [place] [address] PCP - General Family Medicine 10/04/23 Goals (unrecognized section and content) Goals may be documented in a n alternate section FOR RECORDS PERTAINING TO PATIENTS WHO ARE OR HAVE BEEN ENROLLED IN A CHEMICAL DEPENDENCY/SUBSTANCEABUSE PROGRAM, SOME INFORMATION MAY BE OMITTED. This clinical summary was aggregated from multiple sources. Caution should be exercised in using it in the provision of clinical care. This summary normalizes information from multiple sources, and as a consequence, information in this document may materially change the coding, format and clinical context of patient data. In addition, data may be omitted in some cases. CLINICAL DECISIONS SHOULD BE BASED ON THE PRIMARY CLINICAL RECORDS. [facility] [employer] [facility]. provides no warranty or guarantee of the accuracy or completeness of information in this document.
== END 2024-07-12 16:15 | disposition home or self-care (01) ==
LOC: MAMMO 16:14
PROVIDERS: PCP Internal Medicine; Visit Provider Family Medicine
DX: Z12.31 Encounter for screening mammogram for malignant neoplasm of breast (principal); Z80.3 Family history of malignant neoplasm of breast
CPT/HCPCS: 77063; 77067